=== PATIENT | female | born 1965 | race Caucasian/White ===

== ENCOUNTER 2020-05-01 10:49 | Outpatient (CLI) | payer BC, SELFPAY ==
--- NOTE | ~2020-05-01 | US_ITS ---
EXAMINATION: US pelvic complete w TV DATE: 05/01/2020 11:48 INDICATION: Abnormal findings on diagnostic imaging, history of endometrial thickening, postmenopausa l, and nondiagnostic endometrial biopsy on 10/29/2019 TECHNIQUE: Multiple transabdominal and endovaginal sonographic images of the pelvis were obtained. COMPARISON: 09/19/2019 FINDINGS: The uterus measures 10.1 x 4.1 x 4.6 cm. The endometrial complex is not well evaluated due to bowel gas but not definitely thickened. The ovaries are not visualized however no adnexal abnormal ity is seen. There is no free fluid in the pelvis. IMPRESSION: 1. No definite endometrial thickening identified, evaluation somewhat limited by bowel gas. Reviewed, dictated and finalized at location B. IMPRESSION: 1. No definite endometrial thickening identified, evaluation somewhat limited b y bowel gas.
== END 2020-05-01 10:50 | disposition home or self-care (01) ==
LOC: ANHIMG 10:51
PROVIDERS: PCP Internal Medicine; Visit Provider Obstetrics & Gynecology
DX: R93.89 Abnormal findings on diagnostic imaging of other specified body structures (principal)
CPT/HCPCS: 76830; 76856

== ENCOUNTER 2020-05-07 14:55 | Outpatient (CLI) | payer BC, SELFPAY ==
--- NOTE | ~2020-05-07 | MM_ITS ---
EXAMINATION: MM screening rasta BI w shantanu HISTORY: Screening TECHNIQUE: Craniocaudal and mediolateral oblique 3-D tomosynthesis images were obtained and synthetic 2-D images were generated. CAD analysis was submitted and interpreted. COMPARISON: Comparison to multiple prior studies sequentially, with oldest reviewed study dated 11/2015. BREAST PARENCHYMAL COMPOSITION: The breasts are extremely dense, which lowers the sensitivity of mamm ography. FINDINGS: Bilateral breast asymmetries are stable. There is no evidence of suspicious mass, calcifica tion, or architectural distortion to suggest malignancy in either breast. There has been no suspiciou s interval change. IMPRESSION: 1. No mammographic evidence of malignancy. 2. Recommend routine screening mammography in one year. BI-RADS Category 2: Benign finding(s). Reviewed, dictated and finalized at location A.
== END 2020-05-07 14:56 | disposition home or self-care (01) ==
LOC: ANHIMG 14:57
PROVIDERS: PCP Internal Medicine; Visit Provider Obstetrics & Gynecology
DX: Z12.31 Encounter for screening mammogram for malignant neoplasm of breast (principal)
CPT/HCPCS: 77063; 77067

== ENCOUNTER 2021-05-18 14:26 | Outpatient (CLI) | payer BC, SELFPAY ==
--- NOTE | ~2021-05-18 | MM_ITS ---
EXAMINATION: MM screening [facility] BI w shantanu HISTORY: Screening mammogram TECHNIQUE: Craniocaudal and mediolateral oblique 3-D tomosynthesis images were obtained and synthetic 2-D images were generated. CAD analysis was submitted and interpreted. COMPARISON: 05/07/2020, 05/21/2018, 10/16/2017 BREAST PARENCHYMAL COMPOSITION: The breasts are heterogeneously dense, which may obscure small masses . FINDINGS: There is no evidence of suspicious mass, calcification, or architectural distortion to sugg est malignancy in either breast. There has been no suspicious interval change. IMPRESSION: 1. No mammographic evidence of malignancy. 2. Recommend routine screening mammography in one year. BI-RADS Category 1: Negative Reviewed, dictated and finalized at location A.
== END 2021-05-18 14:27 | disposition home or self-care (01) ==
PROVIDERS: PCP Internal Medicine; Visit Provider Obstetrics & Gynecology
DX: Z12.31 Encounter for screening mammogram for malignant neoplasm of breast (principal)
CPT/HCPCS: 77063; 77067

== ENCOUNTER 2021-11-10 13:30 | Outpatient (CLI) | payer BC, SELFPAY | END 2021-11-10 13:31 | disposition home or self-care (01) | LOC: ANHAUDIO 13:31 | PROVIDERS: PCP Internal Medicine; Visit Provider Otolaryngology | DX: H93.239 Hyperacusis, unspecified ear (principal) | CPT/HCPCS: 92557; 92567 ==

== ENCOUNTER 2022-01-09 01:22 | Emergency (ER) | payer BC, SELFPAY ==
--- NOTE | ~2022-01-09 | CT_ITS ---
EXAMINATION: CT abdomen pelvis w con DATE: 01/09/2022 02:39 INDICATION: Generalized abdominal pain. TECHNIQUE: Computed tomography (CT) of the abdomen and pelvis was performed with 100 mL Omnipaque 350 intravenous contrast. Automated exposure control and iterative reconstruction technique were employe d. The dose-length product was 263.97 mGy-cm. COMPARISON: CT abdomen and pelvis 08/11/2019 FINDINGS: The visualized portions of the lung bases demonstrate mild atelectasis. No pleural effusion . The heart size is normal. No pericardial effusion. The liver, gallbladder, spleen, pancreas, adrena l glands, and left kidney are normal. There is a 1.5 cm cyst in right kidney. The appendix is normal. There are mildly dilated loops of small bowel in the lower abdomen. There is physiologic fluid in th e pelvis. There are no pathologically enlarged lymph nodes. There is moderate lower lumbar spondylosi s. IMPRESSION: 1. Mildly dilated loops of small bowel in the lower abdomen, likely adynamic ileus. Reviewed, dictated and finalized at location A. IMPRESSION: 1. Mildly dilated loops of small bowel in the lower abdomen, likely adynamic il eus.
[2022-01-09 01:27] VITALS: BP 145/77; PULSE 73; RESP 19; TEMP 36.4; O2SAT 100
[2022-01-09 02:10] LABS: Basophils Absolute Auto 0.1 K/mm3 (0.0-0.1); Basophils Percent Auto 1.3 % (0.2-1.2); Eosinophils Absolute Auto 0.2 K/mm3 (0-0.3); Eosinophils Percent Auto 2.9 % (0-4.4); Hematocrit 37.4 % (37.0-47.0); Hemoglobin 11.8 g/dL (12.0-15.0); Immature Granulocyte Absolute 0.01 K/mm3 (0.00-0.031); Immature Granulocyte Percent A 0.2 % (0-0.5); Lymphocytes Absolute Auto 1.92 K/mm3 (0.9-3.2); Lymphocytes Percent Auto 36.7 % (18.3-44.2); Mean Corpuscular HGB Conc 31.6 g/dl (32-36); Mean Corpuscular Hemoglobin 26.8 pg (26-34); Mean Corpuscular Volume 84.8 fl (80-100); Mean Platelet Volume 10.6 fl (7.4-10.4); Monocytes Absolute Auto 0.6 K/mm3 (0.1-0.6); Monocytes Percent Auto 11.5 % (2.6-8.5); Neutrophils Absolute Auto 2.5 K/mm3 (1.3-6.7); Neutrophils Percent Auto 47.4 % (45.5-73.1); Platelet Count Result 222 k/mm3 (150-375); Red Blood Count 4.41 M/mm3 (4.2-5.4); Red Cell Distribution Width 14.6 % (11.5-14.5); White Blood Count 5.2 K/mm3 (4.5-10.0)
--- NOTE | 2022-01-09 02:11 | ED.ABDPAIN ---
HPI - Abdominal Pain General Chief Complaint: Abdominal Pain Stated Complaint: stomach pain Time Seen by Provider: 01/09/22 01:57 Source: patient, family and RN notes reviewed Mode of arrival: ambulatory Limitations: no limitations History of Present Illness HPI narrative: 56-year-old female history of and uterine ablation presents the [facility] for evaluation of worsening abdominal pain. Patient states that approximately 11 PM she had onset of abdominal pain which she describes as central abdomen. Patient denies any radiation of the pain to her back or chest. Patient denies anything seeming to make the pain better or worse. Patient denies any associated nausea vomiting or diarrhea. Patient denies any change in bowel habits. Related Data Home Medications Medication Instructions Recorded Confirmed Saccharomyces boulardii 250 mg 250 mg PO BID 04/14/20 01/09/22 capsule multivitamin 1 tablet PO DAILY 04/14/20 01/09/22 Allergies Allergy/AdvReac Type Severity Reaction Status Date / Time No Known Allergies Allergy Verified 01/09/22 01:24 Review of Systems Review of Systems: CONSTITUTIONAL: Denies fever, chills, or sweats. EYES: Denies visual changes, redness, or discharge. ENT: Denies rhinorrhea, congestion, sore throat, or otalgia. CARDIOVASCULAR: Denies chest pain, palpitations, or edema. RESPIRATORY: Denies cough or dyspnea. GASTROINTESTINAL: See HPI GENITOURINARY: Denies dysuria or hematuria. SKIN: Denies rash or itching. MUSCULOSKELETAL: Denies back pain, joint pain, or myalgia. NEUROLOGIC: Denies headache, numbness, or weakness. All systems reviewed & are unremarkable except as noted in HPI and below PMFSH Past Medical History Medical History Abnormal uterine bleeding Seasonal allergies Surgical History Surgical History History of x1 History of endometrial ablation Family History Family History Father Patient's father is Hypertension Carcinoma of colon Social History Social History Smoking status: Never smoker Second hand tobacco smoke exposure: No Alcohol intake: never Substance use: unknown Gender identity (if verbalized by the patient): Female Exam Narrative: APPEARANCE: Well appearing, no pain, no distress, well-nourished. HEAD: normocephalic, atraumatic. EYES: PERRLA/EOMI, conjunctivae clear. NOSE: Normal no drainage NECK: Supple. No adenopathy, no masses. RESPIRATORY: Airway patent, respirations nonlabored. Clear to auscultation bilaterally, no rales, rhonchi, wheezing. CARDIOVASCULAR: Regular rate and rhythm without murmurs rubs or gallops. ABDOMINAL: Soft, guarding, generalized abdominal tenderness with more tenderness at left lower quadrant. MUSCULOSKELETAL: Moves all extremities. Strength/ROM intact, No edema, No calf tenderness. NEURO: Alert. Cranial nerves II through XII intact. Grossly intact SKIN: Warm, dry. Normal Color Course Course Emergency Course: Patient felt improved with treatment. Lactic acid was not elevated. No elevated leukocytosis. Patient is afebrile. On reexam patient's abdomen is nontender. UA was negative for urinary tract infection. CT scan showed evidence of ileus or enteritis. Patient and family were updated on the results of the work-up and plan for discharge and close follow-up. All questions and concerns were addressed. Vital Signs Vital signs: Vital Signs Temperature 97.5 F L 01/09/22 01:27 Pulse Rate 73 01/09/22 01:27 Respiratory Rate 19 01/09/22 01:27 Blood Pressure 145/77 H 01/09/22 01:27 Pulse Oximetry 100 01/09/22 01:27 Temperature 97.5 F L 01/09/22 01:27 Pulse Rate 63 01/09/22 04:10 Respiratory Rate 12 01/09/22 04:10 Blood Pressure 118/6
[2022-01-09] MEDS: SODIUM CHLORIDE 0.9% IV 1,000 ML 999 ML IV CONT (02:19)
[2022-01-09] MEDS: HYDROmorphone HCL INJ (*CRX) 1 MG/ML SYR IV PUSH (02:19)
[2022-01-09 02:20] LABS: Alanine Aminotransferase 21 U/L (4-35); Albumin Level 4.3 g/dL (3.5-5.1); Alkaline Phosphatase 108 U/L (38-126); Anion Gap 4 mmol/L (8-16); Aspartate Amino Transferase 30 U/L (14-36); Bilirubin,Total < 0.1 mg/dL (0.2-1.3); Blood Urea Nitrogen 18 mg/dL (7-17); Calcium 9.2 mg/dL (8.4-10.2); Carbon Dioxide 28 mmol/L (22-30); Chloride 107 mmol/L (98-107); Estimated Glomerular Filt Rate > 60; Glucose 103 mg/dL (65-110); Lactic Acid Reflex 0.6 mmol/L (0.7-2.1); Lipase 99 U/L (23-300); Potassium 3.9 mmol/L (3.4-5.0); Sodium 139 mmol/L (137-145)
[2022-01-09 02:27] VITALS: BP 114/68; PULSE 72; RESP 25; O2SAT 99
--- NOTE | 2022-01-09 02:27 | PC.NURSE ---
Pt to CT on stretcher at this time.
[2022-01-09 03:10] VITALS: BP 102/62; PULSE 70; RESP 16; O2SAT 97
[2022-01-09 04:10] VITALS: BP 118/60; PULSE 63; RESP 12; O2SAT 99
[2022-01-09 05:17] LABS: Appearance Urine Clear (Clear); Bilirubin Urine Negative (Negative); Blood Urine Negative (Negative); Color Urine Yellow (Yellow); Glucose Urine UA Negative (Negative); Ketones Urine Negative (Negative); Leukocyte Esterase Ur Negative LEU/UL (Negative); Nitrate Urine Negative (Negative); Protein Urine Negative (Negative); Urobilinogen Urine 0.2 mg/dL (<2.0)
[2022-01-09 05:21] VITALS: BP 123/61; PULSE 61; RESP 15; O2SAT 98
[2022-01-09 05:22] LABS: Mucus Urine Rare /lpf; RBC Urine 0-2 /hpf (0-2); Squamous Epithelial Cell Urine Rare /hpf (Few); WBC Urine 0-3 /hpf
[2022-01-09 05:25] LABS: Add Urine Microscopic? YES
== END 2022-01-09 05:35 | disposition home or self-care (01) ==
PROVIDERS: Emergency Provider Emergency Medicine; PCP Internal Medicine
DX: R10.84 Generalized abdominal pain (principal)
CPT/HCPCS: 36415; 74177; 80053; 81001; 83605; 83690; 85025; 96361; 96374; 99284; J1170; J7030; Q9967

== ENCOUNTER → 2022-05-20 14:50 | Outpatient (CLI) | payer BC, SELFPAY ==
--- NOTE | ~2022-05-20 | MM_ITS ---
EXAMINATION: MM screening rasta BI w shantanu HISTORY: Screening TECHNIQUE: Craniocaudal and mediolateral oblique 3-D tomosynthesis images were obtained and synthetic 2-D images were generated. CAD analysis was submitted and interpreted. COMPARISON: Comparison to multiple prior studies sequentially, with oldest reviewed study dated 05/18. BREAST PARENCHYMAL COMPOSITION: The breasts are heterogeneously dense, which may obscure small masses . FINDINGS: There is no evidence of suspicious mass, calcification, or architectural distortion to sugg est malignancy in either breast. There has been no suspicious interval change. IMPRESSION: 1. No mammographic evidence of malignancy. 2. Recommend routine screening mammography in one year. BI-RADS Category 1: Negative Reviewed, dictated and finalized at location A.
== END ==
PROVIDERS: PCP Internal Medicine; Visit Provider Obstetrics & Gynecology
DX: Z12.31 Encounter for screening mammogram for malignant neoplasm of breast (principal)
CPT/HCPCS: 77063; 77067

== ENCOUNTER 2023-02-13 13:43 | Outpatient (CLI) | payer BC, SELFPAY ==
[2023-02-13 14:16] LABS: Appearance Urine Cloudy (Clear); Bacteria Urine None Seen /hpf; Bilirubin Urine Negative (Negative); Blood Urine 1+ (Negative); Color Urine Yellow (Yellow); Glucose Urine UA Negative (Negative); Ketones Urine Negative (Negative); Leukocyte Esterase Ur 3+ LEU/UL (NEGATIVE); Nitrate Urine Negative (Negative); Non Pathogenic Casts 0-2; Protein Urine Negative (Negative); RBC Urine 0-2 /hpf (0-2); Specific Grav Ur 1.014 (1.001-1.035); Squamous Epithelial Cell Urine None seen /hpf (Few); Urobilinogen Urine 0.2 mg/dL (<2.0); WBC Urine >100 /hpf (0-3); pH Urine 6.5 (5.0-9.0)
[2023-02-13 14:18] LABS: Basophils Percent Auto 0.6 % (0.2-1.2); Eosinophils Absolute Auto 0.2 K/mm3 (0-0.3); Eosinophils Percent Auto 2.1 % (0-4.4); Hematocrit 36.5 % (37.0-47.0); Hemoglobin 11.9 g/dL (12.0-15.0); Immature Granulocyte Absolute 0.01 K/mm3 (0.00-0.031); Immature Granulocyte Percent A 0.1 % (0-0.5); Lymphocytes Absolute Auto 1.46 K/mm3 (0.9-3.2); Lymphocytes Percent Auto 20.6 % (18.3-44.2); Mean Corpuscular HGB Conc 32.6 g/dl (32-36); Mean Corpuscular Hemoglobin 29.3 pg (26-34); Mean Corpuscular Volume 89.9 fl (80-100); Mean Platelet Volume 10.4 fl (7.4-10.4); Monocytes Absolute Auto 0.5 K/mm3 (0.1-0.6); Monocytes Percent Auto 6.6 % (2.6-8.5); Platelet Count Result 222 k/mm3 (150-375); Red Blood Count 4.06 M/mm3 (4.2-5.4); Red Cell Distribution Width 13.8 % (11.5-14.5); White Blood Count 7.1 K/mm3 (4.5-10.0)
[2023-02-13 14:24] LABS: Iron 124 ug/dL (37-170)
[2023-02-13 14:27] LABS: Add Urine Microscopic? YES
[2023-02-13 14:33] LABS: Percent Iron Saturation 37 % (20-50)
== END 2023-02-13 13:44 | disposition home or self-care (01) ==
PROVIDERS: PCP Internal Medicine; Visit Provider Internal Medicine
DX: D64.9 Anemia, unspecified (principal); R30.0 Dysuria
CPT/HCPCS: 36415; 81001; 83540; 83550; 85025

== ENCOUNTER 2023-02-23 01:17 | Day surgery (SDC) | payer BC, SELFPAY ==
[2023-02-08 15:28] VITALS: BMI 21.6
[2023-02-23 06:21] VITALS: BP 107/68; PULSE 64; RESP 18; TEMP 36.4; O2SAT 100
[2023-02-23] MEDS: LACTATED RINGERS 1,000 ML 150 ML IV CONT (06:39)
--- NOTE | 2023-02-23 07:22 | P.PNAN_ITS ---
Anes - Initial Pre Proc Eval Procedure: Operation Date: 02/23/23 07:30 Proposed Procedures p Colonoscopy - Terrance Nguyễn MD Date/Time: 02/23/23 07:22 Surgeon: Terrance Nguyễn MD Pre Op Diagnosis: family hx colon ca Patient Data Age: 57 Gender: F Height: 1.65 m Weight: 58.6 kg Last Vital Signs Temp 97.5 F L 02/23/23 06:21 Pulse 64 02/23/23 06:21 Resp 18 02/23/23 06:21 BP 107/68 02/23/23 06:21 Pulse Ox 100 02/23/23 06:21 O2 Del Method Room Air 02/23/23 06:21 Allergies Allergy/AdvReac Type Severity Reaction Status Date / Time No Known Allergies Allergy Verified 02/23/23 06:19 Home Medications Medication Instructions Recorded Confirmed Type Saccharomyces boulardii 250 mg 250 mg PO BID 04/14/20 02/08/23 History capsule (Digest Probiotic (S.boulardii)) multivitamin 1 tablet PO DAILY 04/14/20 02/08/23 History ferrous sulfate 325 mg (65 mg 325 mg PO DAILY 02/08/23 02/08/23 History iron) tablet psyllium husk 0.4 gram capsule 0.4 g PO DAILY 02/08/23 02/08/23 History (Daily Fiber) Patient hx anesthesia problems: none Family hx anesthesia problems: none Results Review: All pre-operative results and documents have been reviewed as part of the pre- operative evaluation. FOR[facility]LY [facility] Past Medical History Medical History (Updated 01/24/23 @ 17:17 by Miguel Ulloa MD) Abnormal uterine bleeding Coccygeal pain Family history of colon cancer in father Metatarsalgia of both feet Pelvic pain in female Pes planus of both feet Plantar fasciitis, bilateral Seasonal allergies Surgical History Surgical History History of x1 History of endometrial ablation Family History Family History Father Patient's father is Hypertension Carcinoma of colon Mother Mini stroke Social History Social History Smoking status: Never smoker Second hand tobacco smoke exposure: No Alcohol intake: never Substance use: unknown Substance use type: does not use Living arrangements: with family Occupation/Education: occupation 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 Informed Consent: The patient's anesthetic plan and its attendant risks and benefits were discussed with the patient/family/POA. Questions were solicited and answers provided to the satisfaction of the patient/family/POA.
--- NOTE | 2023-02-23 07:26 | PM.HPGS ---
History of Present Illness History of Present Illness Consent: Risks, benefits, and alternatives have been discussed and questions answered. Patient agrees to proceed with procedure. Chief complaint: family hx colon ca Narrative: Kim Laws is a 57 year old female Presents for colonoscopy. Patient's father had colon cancer. Patient reports that her own weight appetite and bowel movements are normal. Patient denies abdominal pain. She has had no bleeding. She presents today for screening colonoscopy. Previous colonoscopy 2016 and 2011 were unremarkable. Review of Systems Review of Systems: Review of systems noncontributory. COUNTS INCLUDE 234 BEDS AT THE [facility] Past Medical History Medical History (Updated 02/23/23 @ 07:27 by Terrance Nguyễn MD) Abnormal uterine bleeding Coccygeal pain Family history of colon cancer in father Metatarsalgia of both feet Pelvic pain in female Pes planus of both feet Plantar fasciitis, bilateral Seasonal allergies Surgical History Surgical History History of x1 History of endometrial ablation Family History Family History Father Patient's father is Hypertension Carcinoma of colon Mother Mini stroke Social History Social History Smoking status: Never smoker Second hand tobacco smoke exposure: No Alcohol intake: never Substance use: unknown Substance use type: does not use Living arrangements: with family Occupation/Education: occupation 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 Gender identity (if verbalized by the patient): Female Spiritual care concerns: No Meds Home Medications and Allergies Home Medications Medication Instructions Recorded Confirmed Type Saccharomyces boulardii 250 mg 250 mg PO BID 04/14/20 02/08/23 History capsule (Digest Probiotic (S.boulardii)) multivitamin 1 tablet PO DAILY 04/14/20 02/08/23 History ferrous sulfate 325 mg (65 mg 325 mg PO DAILY 02/08/23 02/08/23 History iron) tablet psyllium husk 0.4 gram capsule 0.4 g PO DAILY 02/08/23 02/08/23 History (Daily Fiber) Allergies Allergy/AdvReac Type Severity Reaction Status Date / Time No Known Allergies Allergy Verified 02/23/23 06:19 Vital Signs Vital Signs - 24 hr 02/23/23 06:21 Temperature 97.5 F L Pulse Rate 64 Respiratory Rate 18 Blood Pressure 107/68 Pulse Oximetry 100 Oxygen Delivery Room Air Exam Narrative: Physical exam reveals patient to be alert. Vital signs stable. HEENT exam is unremarkable. Patient is anicteric. Lungs are clear to auscultation and percussion. Heart is without murmur or extra sounds. Abdomen bowel sounds are present soft nontender with no organomegaly. Digital external rectal exam is normal. Assessment and Plan Assessment and plan (1) Encounter for screening colonoscopy: Code(s): Z12.11 - Encounter for screening for malignant neoplasm of colon Status: Acute Assessment and Plan: Patient presents today for screening colonoscopy. Her father had colon cancer. For this reason she has had exams at 5 year intervals. Further recommendations may be given after endoscopy.
[2023-02-23 07:51] VITALS: BP 99/48; PULSE 74; RESP 16; O2SAT 99
[2023-02-23 07:59] VITALS: BP 99/59; PULSE 66; RESP 22; O2SAT 99
[2023-02-23 08:09] VITALS: BP 111/82; PULSE 60; RESP 22; O2SAT 100
== END 2023-02-23 08:22 | disposition home or self-care (01) ==
PROVIDERS: PCP Internal Medicine; Visit Provider Internal Medicine Gastroenterology
PROC: 0DJD8ZZ Inspection of Lower Intestinal Tract, Via Natural or Artificial Opening Endoscopic (ICD-10-PCS; CPT 45378; principal; 2023-02-23 07:30)
DX: Z12.11 Encounter for screening for malignant neoplasm of colon (principal); K64.8 Other hemorrhoids; Z80.0 Family history of malignant neoplasm of digestive organs
CPT/HCPCS: 45378; J2704; J7120

== ENCOUNTER 2023-06-21 14:05 | Outpatient (CLI) | payer BC, SELFPAY ==
--- NOTE | ~2023-06-21 | MM_ITS ---
EXAMINATION: MM screening rasta BI w shantanu HISTORY: Screening mammogram TECHNIQUE: Craniocaudal and mediolateral oblique 3-D tomosynthesis images were obtained and synthetic 2-D images were generated. CAD analysis was submitted and interpreted. COMPARISON: 05/20/2022, 05/14/2021, 05/07/2020 bilateral screening mammogram examinations BREAST PARENCHYMAL COMPOSITION: The breasts are heterogeneously dense, which may obscure small masses . FINDINGS: Stable mild fibroglandular asymmetry. There is no evidence of suspicious mass, calcificatio n, or architectural distortion to suggest malignancy in either breast. There has been no suspicious i nterval change. IMPRESSION: 1. No mammographic evidence of malignancy. 2. Recommend routine screening mammography in one year. BI-RADS Category 2: Benign finding(s). Reviewed, dictated and finalized at location A.
== END 2023-06-21 14:06 | disposition home or self-care (01) ==
LOC: ANHIMG 14:07
PROVIDERS: PCP Internal Medicine; Visit Provider Registered Nurse
DX: Z12.31 Encounter for screening mammogram for malignant neoplasm of breast (principal)
CPT/HCPCS: 77063; 77067

== ENCOUNTER 2023-10-24 15:31 | Outpatient (CLI) | payer BC, SELFPAY ==
--- NOTE | ~2023-10-24 | MR_ITS ---
MRI of the lumbar spine Clinical History: Back pain Technique: Axial T2-weighted images, and sagittal T1-weighted, T2-weighted, and T2 fat-sat images wer e acquired. Findings: There is no fracture or subluxation of the lumbar spine. Vertebral bodies maintain normal h eight and alignment. There are mild reactive marrow signal changes about the L5-S1 disc space due to underlying degenerative disc disease. At L1-L2, there is no disc bulge or herniation. There is minimal facet joint degenerative change. No central canal stenosis or neural foraminal narrowing. At L2-L3, there is no disc bulge or herniation. No spinal canal stenosis or neural foraminal narrowin g. L3-L4, there is no disc bulge or herniation. No spinal canal stenosis or neural foraminal narrowing. At L4-L5, there is no disc bulge or herniation. There is mild facet arthropathy. No central canal vicenta nosis or neural foraminal narrowing. At L5-S1, there is moderate degenerative disc narrowing with minimal disc bulge. No central canal vicenta nosis. There is mild bilateral neural foraminal narrowing. Paravertebral soft tissues are unremarkable. Impression: Very mild degenerative change, particularly L5-S1, as detailed above. Reviewed, dictated and finalized at location M. E BUSINESS PROJECT MANAGER Impression: Very mild degenerative change, particularly L5-S1, as detailed above.
== END 2023-10-24 15:32 | disposition home or self-care (01) ==
LOC: ANHIMG 15:33
PROVIDERS: PCP Internal Medicine; Visit Provider Physician Assistant
DX: M47.816 Spondylosis without myelopathy or radiculopathy, lumbar region (principal); M47.817 Spondylosis without myelopathy or radiculopathy, lumbosacral region
CPT/HCPCS: 72148

== ENCOUNTER 2024-06-05 14:44 | Outpatient (CLI) | payer BC, SELFPAY ==
--- NOTE | ~2024-06-05 | XR_ITS ---
[id number] Ordering provider: López Norton DO History: . R07.81 - Pleurodynia . Comparison: None. FINDINGS: BONES: No acute rib fracture. MEDIASTINUM: The cardiac silhouette is not enlarged. LUNGS: No effusions or infiltrates. No pneumothorax. SOFT TISSUES: Normal. IMPRESSION: No acute osseous abnormality of the bilateral ribs. (Note: subtle/nondisplaced rib fractures can be o ccult on plain films and if there is continued clinical suspicion for rib fracture, recommend follow up CT chest.) Reviewed, dictated and finalized at location A. IMPRESSION: No acute osseous abnormality of the bilateral ribs. (Note: subtle/nondisplaced rib fractures can be occult on plain films and if there is continued clinical s uspicion for rib fracture, recommend follow up CT chest.)
--- NOTE | ~2024-06-05 | XR_ITS ---
3 VIEWS LUMBAR SPINE Ordering provider: López Norton DO History: . M54.9 - Dorsalgia, unspecified . Comparison: December 19, 2018 FINDINGS: VERTEBRAL BODIES: No visible fracture or subluxation. DISK SPACES: Slight narrowing of the disc L5-S1. SOFT TISSUES: Normal. IMPRESSION: No acute osseous abnormality lumbar spine. Reviewed, dictated and finalized at location A.
== END 2024-06-05 14:45 | disposition home or self-care (01) ==
LOC: ANHIMG 14:49
PROVIDERS: PCP Internal Medicine; Visit Provider Internal Medicine
DX: M54.9 Dorsalgia, unspecified (principal); R07.81 Pleurodynia
CPT/HCPCS: 71110; 72100

== ENCOUNTER 2024-06-24 13:58 | Outpatient (CLI) | payer BC, SELFPAY ==
--- NOTE | ~2024-06-24 | MM_ITS ---
EXAMINATION: MM screening rasta BI w shantanu HISTORY: Screening TECHNIQUE: Craniocaudal and mediolateral oblique 3-D tomosynthesis images were obtained and synthetic 2-D images were generated. CAD analysis was submitted and interpreted. COMPARISON: Comparison to multiple prior studies sequentially, with oldest reviewed study dated 05/18. BREAST PARENCHYMAL COMPOSITION: Dense: The breasts are heterogeneously dense, which may obscure small masses FINDINGS: There are developing nodular asymmetries in the upper outer quadrant of the right breast . The left breast is stable without evidence for malignancy. IMPRESSION: 1. Developing nodular asymmetries of the right breast. 2. Additional mammographic views and possible breast ultrasound are recommended. BI-RADS Category 0: Incomplete: Needs additional imaging evaluation. Reviewed, dictated and finalized at location B. IMPRESSION: 1. Developing nodular asymmetries of the right breast. 2. Additional mammographic views and possible breast ultrasound are recommended . BI-RADS Category 0: Incomplete: Needs additional imaging evaluation.
== END 2024-06-24 13:59 | disposition home or self-care (01) ==
LOC: ANHIMG 14:00
PROVIDERS: PCP Internal Medicine; Visit Provider Obstetrics & Gynecology
DX: N64.89 Other specified disorders of breast (principal); Z12.31 Encounter for screening mammogram for malignant neoplasm of breast
CPT/HCPCS: 77063; 77067

== ENCOUNTER 2024-07-02 11:40 | Outpatient (CLI) | payer BC, SELFPAY ==
--- NOTE | ~2024-07-02 | MMUS_ITS ---
EXAMINATION: MM diagnostic rasta RT w shantanu, US breast RT limited HISTORY: Follow-up nodular asymmetries of the right breast. TECHNIQUE: Additional 3-D tomosynthesis images of the right breast were performed and synthetic 2-D i mages were generated. CAD analysis was submitted and interpreted. High resolution Limited right breas t ultrasound was performed. COMPARISON: Comparison to multiple prior studies sequentially, with oldest reviewed study dated 05/21. BREAST PARENCHYMAL COMPOSITION: Dense: The breasts are heterogeneously dense, which may obscure small masses FINDINGS: MAMMOGRAPHIC FINDINGS: There are persistent nodular asymmetries in the outer aspect of the right breast, although with spot compression and mediolateral views there is been no significant change allowing for differences of te chnique. No suspicious calcifications or architectural distortion. ULTRASOUND: Limited right breast ultrasound: At 10:00, 4 cm from the nipple, there is an oval hypoechoic 5 mm mas s with parallel orientation, no posterior features or internal vascularity. IMPRESSION: 1. Probable benign right breast mass at 10:00, 4 cm from the nipple. 2. Recommend 6 month follow-up Limited right breast ultrasound BI-RADS category 3, probably benign findings. Reviewed, dictated and finalized at location B. IMPRESSION: 1. Probable benign right breast mass at 10:00, 4 cm from the nipple. 2. Recommend 6 month follow-up Limited right breast ultrasound BI-RADS category 3, probably benign findings.
== END 2024-07-02 11:41 | disposition home or self-care (01) ==
PROVIDERS: PCP Internal Medicine; Visit Provider Obstetrics & Gynecology
DX: R92.8 Other abnormal and inconclusive findings on diagnostic imaging of breast (principal)
CPT/HCPCS: 76642; 77061; 77065; G0279

== ENCOUNTER 2024-11-25 14:34 | Outpatient (CLI) | payer BC, SELFPAY | END 2024-11-25 14:35 | disposition home or self-care (01) | PROVIDERS: PCP Internal Medicine; Visit Provider Surgery | DX: Z12.39 Encounter for other screening for malignant neoplasm of breast (principal); R92.333 Mammographic heterogeneous density, bilateral breasts; N63.11 Unspecified lump in the right breast, upper outer quadrant | CPT/HCPCS: 77049; A9577; A9579; C8908 ==

== ENCOUNTER 2025-01-01 13:05 | Outpatient (CLI) | payer BC, SELFPAY ==
--- NOTE | ~2025-01-01 | US_ITS ---
US breast RT limited INDICATION: Follow-up right breast mass TECHNIQUE: Dedicated Limited right breast ultrasound COMPARISON: Ultrasound dated 07/02/2024 FINDINGS: The right breast is/are composed of normal heterogeneous echotexture without focal solid or cystic mass. IMPRESSION: 1: Normal limited right breast ultrasound. Routine yearly screening mammogram and regular clinical breast examination are recommended. BI-RADS CATEGORY 1 - NEGATIVE Reviewed, dictated and finalized at location A.
--- OUTSIDE RECORDS SUMMARY | 2025-01-01 14:37 | XMS_ITS | Clinical Summary ---
Author Organization [facility] Address [address] [place] [id number] Care Team Providers Care Custodial Maintenance Worker Name Role Phone None, Provider Primary Care Provider Unavaila ble Social History Tobacco Use Types Packs/Day Years Used Date Smoking Tobacco: Never Assessed Comments Unknown Sex and Gender Information Value Date Recorded Sex Assigned at Not on file Legal Sex Female 9:32 AM CDT Gender Identity Not on file Sexual Orientation Not on file Plan of Treatment Health Maintenance Due Date Last Done Comments Cervical Cancer Screening Pa p Smear (Age 30 to 64) Every 3 Years 1965 Colorectal Cancer Screening Colonoscopy (10 Years) 1965 Annual Physical 1968 Hepatitis C 1983 DTaP, Tdap and Td Vaccines ( 1 - Tdap) 1984 Cervical Cancer Screening Pa p with HPV Testing (Age 30 to 64) Every 5 Years 1995 Cervical Cancer Screening wi th HPV 1995 Mammogram Screening 2005 Zoster Vaccines (1 of 2) 2015 COVID-19 Vaccine (2023-2 5 season) 2024 12/12/2020, 11/07/2020 Meningococcal B Vaccine Aged Out No l onger eligible based on patient's age to complete this topic Meningococcal Vaccine Aged Out No eboni zo eligible based on patient's age to complete this topic Pneumococcal Vaccine: Pediatrics (0 to 5 Years) and At-Risk Patients (6 to 64 Years) Aged Out No longer eligible b ased on patient's age to complete this topic RSV Immunizations Under 20 Months Aged Out No longer eligible b ased on patient's age to complete this topic Care Teams Custodial Maintenance Worker Relationship Specialty Start Date End Date None, Provider, PCP - General 12/26/20
--- OUTSIDE RECORDS SUMMARY | 2025-01-01 14:37 | XMS_ITS | Clinical Summary ---
Author Organization [facility] [place] Address [address] [place] [address] Phone Care Team Providers Care Wire Weaver Helper Name Role Phone Kirill Kieta DO Primary Care Provider Allergies No known active allergies Medications NORETH A-ET ESTRA/FE FUMARATE (LO LOESTRIN FE ORAL)Indications :Breast lump Take by mouth. Active Active Problems Patient Care Coordination No te Formatting of this note migh t be different from the original. Primary Care: Kirill Keita DO Referring Provider: Solange Pina MD 2010 [facility] [address] [place] [address] Other: Problem Noted Date Diagnosed Date Breast lump 10/12/2012 Family History Medical History Relation Name Comments Colon Cancer Father Heart Disease Father Relation Name Status Comments Father Social History Tobacco Use Types Packs/Day Years Used Date Smoking Tobacco: Never Smokeless Tobacco: Never Alcohol Use Standard Drinks/Week Comments No 0 (1 standard drink = 0.6 oz pur e alcohol) Comments No Sex and Gender Information Value Date Recorded Sex Assigned at Not on file Legal Sex Female 3:21 PM [employer] Gender Identity Not on file Sexual Orientation Not on file Last Filed Vital Signs Vital Sign Reading Time Taken Comments Blood Pressure 111/73 10/12/2012 9:07 AM [employer] Pulse - - Temperature - - Respiratory Rate - - Oxygen Saturation - - Inhaled Oxygen Concentration - - Weight 69.4 kg (153 lb) 10/12/2012 9:07 AM [employer] Height 166.4 cm (5' 5.5 ) 10/12/2012 9:07 AM [employer] Body Mass Index 25.07 10/12/2012 9:07 AM [employer] Plan of Treatment Health Maintenance Due Date Last Done Comments DTAP/TDAP/TD VACCINES (1 - Tdap) 1984 HEPATITIS B VACCINES (1 of 3 - 19+ 3-dose series) 1984 HPV/Cotest (21-29) 1986 PAP SMEAR 1986 CERVICAL CANCER SCREENING 1995 HPV/Cotest (30-65) 1995 PAP SMEAR 1995 COLORECTAL SCREENING 2010 Colorectal Cancer Screening 2010 FIT-DNA Q 3 years 2010 FIT/FOBT Q 1 year 2010 Flex Sig/CT Colonography Q 5 years 2010 BREAST CANCER SCREENING 10/11/2013 10/11/19 13, 05/29/2012, 05/25/2011, Additional history exists ZOSTER VACCINE (1 of 2) 2015 INFLUENZA VACCINE (#1) 2024 PNEUMOCOCCAL VACCINE 0-49 YEARS Aged Out No longer eligible based on patient's age to complete this topic Procedures Procedure Name Priority Date/Time Associated Diagnosis Comments MAMMO DIAGNOSTIC UNI RIGHT W OR WO CAD Routine 10/11/2012 from Last 3 Months or Most Recently Relevant to Health Maintenance Results * MAMMO DIGITAL DIAG UNI RIGHT (10/11/2012) Anatomical Region Laterality Modality Breast Right Other Solange Pina MD MAMMO ORDERABLES Final R esult from Last 3 Months or Most Recently Relevant to Health Maintenance Insurance [facility] BLUE ACCESS/TRUE BLUE PPO Care Teams Wire Weaver Helper Relationship Specialty Start Date End Date Bossman DO Kirill [address] [facility] [address] [place] [address] PCP - General Internal Medicine 10/12/12
== END 2025-01-01 13:06 | disposition home or self-care (01) ==
LOC: ANHIMG 13:06
PROVIDERS: PCP Internal Medicine; Visit Provider Obstetrics & Gynecology
DX: R92.8 Other abnormal and inconclusive findings on diagnostic imaging of breast (principal)
CPT/HCPCS: 76642

== ENCOUNTER 2025-07-16 14:01 | Outpatient (CLI) | payer BC, SELFPAY ==
--- NOTE | ~2025-07-16 | DEXA_ITS ---
Bone Density Report Name: JAQUI DAVENPORT Age: 60 Sex: Female Ethnicity: White Date of : 1965 Indication: postmenopausal; screening for osteoporosis; Referring Provider: López Norton Study: Bone densitometry was performed. Exam Date: July 16, 2025 Accession number: [id number] Bone Density: Region BMD T-score Z-score Classification AP Spine(L1-L4) 0.690 -3.2 -1.8 Osteoporosis Femoral Neck (Left) 0.574 -2.5 -1.2 Osteoporosis Total Hip (Left) 0.692 -2.1 -1.1 Osteopenia Femoral Neck (Right) 0.592 -2.3 -1.0 Osteopenia Total Hip (Right) 0.706 -1.9 -1.0 Osteopenia Total Hip Mean 0.699 -2.0 -1.1 Osteopenia World Health Organization criteria for BMD impression classify patients as: Normal (T-score at or above -1.0), Osteopenia (T-score between -1.0 and -2.5), or Osteoporosis (T-score at or below -2.5). 10-year Fracture Risk: FRAX not reported because: Some T-score for Spine Total or Hip Total or Femoral Neck at or below -2.5 Clinical Information Provided by Patient: Patient maximum height was 66 Menopause Age: 52 Onset of menses at age 14 Number of children 1 Impression: The patient has osteoporosis, based on the Total Spine T-score. Discussion: INCREASED RISK OF FRACTURE. BONE DENSITY IS UNDESIRABLY LOW AT ONE OR MORE SKELETAL SITES, CONSISTENT WITH POSTMENOPAUSAL OSTEOPOROSIS. This patient's lowest T-score meets the World Health Organization's (WHO) criteria for osteoporosis at one or more sites (T-score -2.5 or below). In untreated patients, the risk of osteoporotic fracture increases approximately two-fold for each 1.0 SD decrease in T-score. Low bone density is not the only risk factor for fracture; also consider factors such as patient's age, frailty or poor health, risk of falling, risk of injury, previous osteoporotic fracture, family history of osteoporosis, cigarette smoking, low body weight, etc. Not everyone with low bone mineral density has osteoporosis; osteomalacia and other metabolic bone disorders should also be considered. Patients who have osteoporosis should be evaluated for specific diseases and conditions (secondary causes) that may cause or contribute to bone loss. The [place] [employer]ocrinologists (AACE) and National Osteoporosis Foundation (NOF) recommend pharmacologic intervention for all postmenopausal women whose T-score is in this range. The patient should follow a healthful lifestyle (good nutrition with adequate calcium and vitamin D, and appropriate weight-bearing exercise). Follow-Up: Consider a repeat BMD and Vertebral Fracture Assessment (VFA) exam in 2 years or sooner if medically necessary, to reassess this patient's status. Reported by: MILA on 07/16/2025 2:32:00 PM. Reviewed, dictated and finalized at location A.
== END 2025-07-16 14:02 | disposition home or self-care (01) ==
LOC: MICIMG 14:04
PROVIDERS: PCP Internal Medicine; Visit Provider Internal Medicine
DX: M81.0 Age-related osteoporosis without current pathological fracture (principal); M85.89 Other specified disorders of bone density and structure, multiple sites; Z78.0 Asymptomatic menopausal state; Z13.820 Encounter for screening for osteoporosis
CPT/HCPCS: 77080